=== PATIENT | male | born 1955 | race Caucasian/White ===

== ENCOUNTER 2021-03-09 09:00 | Emergency (ER) | payer MEDICARE ==
[~2021-03-09] VITALS: Ht 167.6 cm; Wt 70.3 kg
[2021-03-09 09:48] LABS: CREATININE 0.8 mg/dL (0.5-1.5); POTASSIUM 3.5 mmol/L (3.5-5.1)
[2021-03-09 09:49] LABS: INR 1.04 (0.85-1.15); PROTHROMBIN TIME 11.3 SEC (9.6-11.6)
[2021-03-09 09:51] LABS: PARTIAL THROMBOPLASTIN TIME 21.6 SEC (26.3-35.5)
[2021-03-09 09:53] LABS: ALBUMIN 3.7 g/dL (3.5-5.0); BILIRUBIN,TOTAL 0.8 mg/dL (0.2-1.0); TOTAL PROTEIN, SERUM 7.6 g/dL (6.0-8.3)
[2021-03-09 09:55] LABS: APPEARANCE,URINE Clear (CLEAR); BILIRUBIN,URINE Negative (NEGATIVE); COLOR,URINE Dark Yellow (YELLOW); GLUCOSE, URINE (UA) Negative (NEGATIVE); KETONES,URINE Trace mg/dL (NEGATIVE); LEUKOCYTE ESTERASE ,URINE Negative (NEGATIVE); NITRATE,URINE Negative (NEGATIVE); OCCULT BLOOD,URINE Negative (NEGATIVE); PROTEIN,URINE Trace mg/dL (NEGATIVE)
[2021-03-09 10:03] LABS: BASOPHILS % (AUTO) 1.1 % (0.0-5.0); EOSINOPHILS % (AUTO) 1.1 % (0.0-8.0); HEMATOCRIT 21.4 % (36-48); LYMPHOCYTES % (AUTO) 62.5 % (21.0-51.0); MEAN CORPUSCULAR HGB CONC 33.2 g/dL (32.0-36.0); MEAN CORPUSCULAR VOLUME 114.4 fL (79-99); MONOCYTES % (AUTO) 5.4 % (3.0-13.0); NEUTROPHILS % (AUTO) 29.9 % (40.0-77.0); NUCLEATED RED BLOOD CELLS 1.1 % (0.0-0.19); PLATELET COUNT (AUTO) 168 K/uL (130-400); RED BLOOD CELL COUNT(AUTO) 1.87 MIL/uL (4.00-5.50); RED CELL DISTRIBUTION WIDTH 20.6 % (11.0-15.5); WHITE BLOOD COUNT (AUTO) 1.8 K/uL (4.8-10.8)
[2021-03-09 10:14] LABS: BACTERIA,URINE None Seen /HPF (None Seen); RBC,URINE 0-1 /HPF (0-1); SQUAMOUS EPITHELIAL CELL,UR 0-2 /HPF (0-2); WBC,URINE 0-1 /HPF (0-1)
[2021-03-09] MEDS ORDERED: PANTOPRAZOLE 40 MG/VIAL IVP SCH (11:00)
[2021-03-09 15:15] VITALS: BP 143/90
== END 2021-03-09 16:08 | disposition home or self-care (01) ==
LOC: EDSEX 09:00 → EDH 09:00
DX: D64.9 Anemia, unspecified (principal); Z85.6 Personal history of leukemia
CPT/HCPCS: 36415; 36430; 80053; 81001; 82270; 85025; 85610; 85730; 86850; 86900; 86901; 86923; 96374; 99285; C9113; P9016